=== PATIENT | male | born 2005 | race Caucasian/White ===

== ENCOUNTER 2023-06-17 10:11 | Emergency (ER) | payer MEDICAID, OTHER ==
[~2023-06-17] VITALS: Ht 170.2 cm; Wt 91.5 kg
[2023-06-17 10:40] VITALS: BP 128/68; PULSE 78; RESP 20; TEMP 97.7; O2SAT 97
[2023-06-17] MEDS ORDERED: PROM1SOL4 PO (11:04)
[2023-06-17] MEDS ORDERED: CEPH500C PO (11:04)
== END 2023-06-17 11:13 | disposition home or self-care (01) ==
LOC: ER 10:11
DX: J20.9 Acute bronchitis, unspecified (principal)
CPT/HCPCS: 71045